=== PATIENT | female | born 2000 | race African-American/Black ===

== ENCOUNTER 2022-12-07 12:57 | Emergency (ER) | payer MEDICAID ==
[~2022-12-07] VITALS: Ht 162.6 cm; Wt 59.0 kg
[2022-12-07 13:05] VITALS: BP 107/67
[2022-12-07] MEDS ORDERED: LIDOCAINE HCL 1% 20ML VIAL (Pyxis) INJ INFIL ONE (13:30)
== END 2022-12-07 15:36 | disposition home or self-care (01) ==
LOC: ER 12:57
DX: N76.0 Acute vaginitis (principal)
CPT/HCPCS: 56420; 99284; J3490